=== PATIENT | male | born 1985 | race Caucasian/White ===

== ENCOUNTER 2024-02-16 09:17 | Emergency (ER) | payer SELFPAY ==
[2024-02-16 09:20] VITALS: BP 158/78
[2024-02-16 09:30] VITALS: BMI 29.8
[2024-02-16] MEDS: NSS 1000 IV (09:38)
[2024-02-16 09:50] LABS: % Basophils 0.7 % (0-2); % Eosinophils 4.3 % (0-6); % Immature Granulocytes 0.3 % (0-0.5); % Lymphocytes 31.7 % (20.5-51.1); % Monocytes 5.9 % (1.7-9.3); % Neutrophils 57.1 % (42.2-75.2); Absolute Eosinophils 0.3 10^3/uL (0-0.7); Absolute Lymphocytes 1.9 10^3/uL (1.2-3.4); Absolute Monocytes 0.4 10^3/uL (0.1-0.6); Absolute Neutrophils 3.5 10^3/uL (1.4-6.5); Hematocrit 42.4 % (39.0-52.0); Hemoglobin 14.8 g/dL (13.0-18.0); Mean Corp Hgb Conc. 34.9 g/dL (33.0-37.0); Mean Corpuscular Hgb 29.1 pg (27.0-31.0); Mean Corpuscular Volume 83.3 fL (80.0-94.0); Nucleated Red Blood Cells % 0 % (-); Platelet Count 210 10^3/uL (130-400); Red Blood Cell Count 5.09 10^6/uL (4.70-6.10); White Blood Cell Count 6.1 10^3/uL (4.8-10.8)
[2024-02-16 10:00] VITALS: BP 115/77
[2024-02-16 10:01] LABS: D-Dimer 0.36 ug/mlFEU (0.00-0.50)
[2024-02-16 10:17] LABS: Troponin I < 0.012 ng/ml
[2024-02-16 10:20] LABS: ALT (SGPT) 22 U/L (0-50); AST (SGOT) 25 U/L (17-59); Albumin 4.8 g/dl (3.5-5.0); Alkaline Phosphatase 113 U/L (38-126); Blood Urea Nitrogen 13 mg/dl (9-20); Calcium 10.2 mg/dl (8.4-10.2); Carbon Dioxide 24 mmol/L (22-30); Chloride 100 mmol/L (98-107); Estimated Creatinine Clearance > 125 ml/min; Glucose 120 mg/dl (70-99); Magnesium 1.9 mg/dl (1.6-2.3); Potassium 3.3 mmol/L (3.5-5.1); Sodium 137 mmol/L (135-145); Total Bilirubin 0.7 mg/dl (0.2-1.3); Total Protein 7.6 g/dl (6.3-8.2); eGFR > 60.00
--- NOTE | 2024-02-16 10:34 | ED.GENMED ---
History of Present Illness
General
Chief Complaint: Chest Pain
Source: patient
Exam Limitations: none
Time Seen by Provider: 02/16/24 09:25
Nursing documentation reviewed up to this point in time: agreed with
Travel History
Have you had any contact with someone who has COVID-19?: No
Do you have any symptoms of coronavirus? Fever > 100 degrees, chills, cough, shortness of breath, sore throat, loss of taste or smell, muscle aches, or headache?: No
History of Present Illness
History of Present Illness:
38-year-old male with past medical history of previous substance abuse but denies any intravenous drug abuse currently on buprenorphine and has been stable over the past few months presenting to the emergency department today with concerns of an
episode of lightheadedness anxiety and presyncopal episode prior to arrival that was abrupt while at work. Also had similar symptoms yesterday that did resolve. Denies specific chest pain currently but had an episode of chest pain yesterday.
Denies nausea vomiting recent illness no fevers. Denies significant medical conditions.
Review of Systems
Review of Systems
Allergies reviewed?: Yes
All Other Systems: ROS reviewed and negative except as documented in HPI and ROS
Phy Exam
Physical Exam
Physical Exam:
GENERAL: Alert , in no apparent distress
EYE: pupils equal and reactive
NECK: Supple, no significant adenopathy.
ENT: o/p clr, mmm.
CARDIAC: Regular rate and rhythm .
LUNGS: Clear breath sounds bilaterally, no acute respiratory distress, no wheezes/rales/rhonchi
ABDOMEN: Soft, without focal tenderness, no r/g, no cvat
NEUROLOGICAL: Alert and oriented, no focal neuro deficits
SKIN: Warm and dry, skin intact.
MUSCULOSKELETAL: No edema, well perfused.
PSYCH: Normal and appropriate interaction.
Scores
Heart Score for Chest Pain Patients
STEMI patient?: No
History: Slightly or Non-Suspicious
ECG: Normal
Age: </= 45 years
Risk Factors: No Risk Factors
Troponin: </= Normal Limit
Heart Score for Chest Pain Patients: 0
Heart Score Risk: 2.5% MACE over next 6 weeks
Course
Orders/Labs/Results
Orders:
Orders
02/16/24 09:18
ECG [Electrocardiogram (*1)] Urgent
Reason for Study: Chest Pain
EKG- Treatment ONCE
02/16/24 09:32
0.9% Sodium Chloride 1000 ml [Nss] 1,000 ml IV BOLUS
02/16/24 09:33
CR Chest - 2 Views Urgent
Comment:
Reason For Exam: sob
02/16/24 09:35
Complete Blood Count/With Diff Urgent
Comprehensive Metabolic Panel Urgent
D-Dimer Urgent
Magnesium Urgent
TSH Reflex To Free T4 Urgent
Troponin I Urgent
02/16/24 10:35
EKG [Electrocardiogram (*1)] Urgent
Reason for Study: Palpitations
Comment: Repeat
EKG- Treatment ONCE
02/16/24 10:37
Urinalysis Reflex To Culture Urgent
Date Specimen was Collected: 02/16/24
Time Specimen was Collected: 11:19
Urine Drug Abuse Screen Urgent
Date Specimen was Collected: 02/16/24
Time Specimen was Collected: 11:19
Abnormal Lab Results
02/16/24
09:35
Potassium 3.3 L mmol/L
(3.5-5.1)
Glucose 120 H mg/dl
(70-99)
02/16/24 09:35
02/16/24 09:35
Vital Signs
Initial and Last Documented VS:
Initial Vital Signs
Temp Pulse Resp BP Pulse Ox
98.0 F 150 20 158/78 96
02/16/24 09:20 04/17/24 09:20 02/16/24 09:20 02/16/24 09:20 02/16/24 09:20
Last Documented Vital Signs
Temp Pulse Resp BP Pulse Ox
98.0 F 73 15 124/74 98
02/16/24 09:20 02/16/24 12:00 02/16/24 12:00 02/16/24 11:00 02/16/24 12:00
MDM/Problems Addressed
MDM/Problems Addressed:
38-year-old male presenting to the emergency department today with concerns of initial lightheadedness elevated heart rate palpitations prior to arrival that was abrupt in onset while at work. Upon arrival here pulse rate in the 150s but sinus.
This rapidly improved during my assessment after receiving fluids to the 80s. Labs were obtained showing slightly low potassium level but otherwise normal troponin negative D-dimer negative. Chest x-ray without acute finding. Patient with
normalizing vital signs patient reassessment claims that he is now asymptomatic. Patient appears stable for outpatient management and advised for close outpatient follow-up. Return precautions given.
*Critical Care Note
Total Time (30-74mins, 75-104mins- exclusive of procedures): Not Applicable
ED Attending Note
-
Portions of this chart may have been created with voice recognition software.� Occasional wrong word or��sound alike� substitutions may have occurred due to the inherent limitations of voice recognition software.
Discharge Plan
Departure
Patient Disposition: Home (Routine Discharge)
Date of Disposition: 02/16/24
Time of Disposition: 12:15
Patient with high blood pressure during this ER visit?: No
Condition: Good
Covid-19: Not Applicable
Discharge Problem:
Pre-syncope, Tachycardia
Instructions: Near Fainting (DC)
Prescriptions:
No Action
gabapentin 100 mg Capsule
100 mg PO .SEE BELOW PRN (Reason: nerve pain)
Patient Comments:
02/16/2024, pt. uses this med. as needed; per pt., he sometimes takes a capsule before and after work and sometimes 2 capsules at bedtime, up to 6 capsules a day.
buprenorphine HCl 8 mg Tablet, Sublingual
12 mg SUBLINGUAL BID
Patient Comments:
02/16/2024, filled on 01/31/2024 for 88 tablets per PDMP.
Excedrin
4 - 5 tab PO DAILYPRN PRN (Reason: headache)
Referrals:
NONE,* [Family Provider] -
Activity Restrictions/Additional Instructions:
You came to the emergency department today after an episode while working. Here you had a very reassuring evaluation and normal vital signs. Please follow-up closely with a primary care doctor as an outpatient. Return to the emergency department
for any worsening, new or concerning symptoms.
Interventions
Interventions:
*Risk Screen - Suicide Last Done: 02/16/24 09:32
*General Assessment Last Done: 02/16/24 09:23
*Neglect/Abuse Screening Last Done: 02/16/24 09:32
ED- Fall Risk Assessment Last Done: 02/16/24 09:32
*ED COVID-19 Vaccine History Last Done: 02/16/24 09:20
ED- Cardiac Assessment Last Done: 02/16/24 09:32
Discharge Date and Time
Print Language: MONTSERRATIAN
[2024-02-16 10:35] VITALS: BP 130/75
[2024-02-16 10:41] LABS: TSH Reflex To Free T4 2.13 uIU/ml (0.47-4.68)
[2024-02-16 11:00] VITALS: BP 124/74
== END 2024-02-16 12:44 | disposition home or self-care (01) ==
LOC: EMR 09:17
PROVIDERS: Physician Assistant; EMERGENCY PHYSICIAN Emergency Medicine
DX: R55 Syncope and collapse (principal); R00.0 Tachycardia, unspecified
CPT/HCPCS: 99285; 96360; 71046; 80053; 83735; 84443; 84484; 85025; 85379; 93005